=== PATIENT | male | born 1950 | race Caucasian/White ===

== ENCOUNTER 2022-07-05 02:21 | Emergency (ER) | payer MEDICARE ==
[2022-07-05 03:10] LABS: Bilirubin Negative (Negative); Blood, Urine Large (Negative); Clarity Cloudy (Clear); Glucose, Urine (Dipstick) Negative (Negative); Ketone, Urine Negative (Negative); Leukocyte Trace (Negative); Nitrite Negative (Negative); Protein, Urine (Dipstick) 100 mg/dL (Neg-Trace); Urobilinogen 0.2 mg/dL (Less than 2)
[2022-07-05 03:16] LABS: RBC/HPF Greater than 50 HPF (0-3); Squamous Epithelial None Seen HPF (0-3); WBC/HPF 0-3 HPF (0-3)
[2022-07-05 03:17] LABS: Bacteria/HPF None Seen HPF (None Seen)
== END 2022-07-05 03:25 | disposition home or self-care (01) ==
LOC: NAV ERS 02:21
DX: T83.091A Other mechanical complication of indwelling urethral catheter, initial encounter (principal); E78.00 Pure hypercholesterolemia, unspecified; I10 Essential (primary) hypertension; E10.9 Type 1 diabetes mellitus without complications; Z87.891 Personal history of nicotine dependence
CPT/HCPCS: 51702; 51798; 81003; 81015; 87086

== ENCOUNTER 2022-07-06 12:03 | Emergency (ER) | payer MEDICARE | END 2022-07-06 14:07 | disposition home or self-care (01) | LOC: NAV ERS 12:03 | DX: T83.091A Other mechanical complication of indwelling urethral catheter, initial encounter (principal); N32.89 Other specified disorders of bladder; E10.9 Type 1 diabetes mellitus without complications; E78.00 Pure hypercholesterolemia, unspecified; I10 Essential (primary) hypertension; Z87.891 Personal history of nicotine dependence | CPT/HCPCS: 99283 ==

== ENCOUNTER 2025-05-16 15:54 | Inpatient (IN) | payer MEDICARE ==
[2025-05-16] MEDS ORDERED: Acetaminophen 325 MG TAB PO PRN (17:51)
[2025-05-16] MEDS ORDERED: Senokot S 8.6-50 MG TAB PO PRN (17:51)
[2025-05-16] MEDS ORDERED: Glucagon 1 MG/ML KIT IM PRN (17:57)
[2025-05-16] MEDS ORDERED: Dextrose 50% Abboject 50 ML SYRINGE SLOW IVP PRN (17:57)
[2025-05-16] MEDS ORDERED: IMIQUIMOD TOP SCH (18:00)
[2025-05-16] MEDS: Tacrolimus 0.5 MG CAP PO SCH (20:24)
[2025-05-16] MEDS: Famotidine 20 MG TAB PO SCH (20:24)
[2025-05-16] MEDS: [UNRECOGNIZED DRUG - OTHER] TOP SCH (20:29)
[2025-05-16] MEDS: Heparin 5,000 UNITS/ML VIAL SC SCH (20:37)
[2025-05-16] MEDS: Lantus 1000 UNITS/10 ML VIAL SC SCH (22:09)
[2025-05-17 05:57] LABS: #Basophils 0.1 thou/uL (0.0-0.2); #Eosinophils 0.1 thou/uL (0.0-0.7); #Lymphocytes 0.7 thou/uL (1.20-3.40); #Monocytes 0.5 thou/uL (0.11-0.59); #Neutrophils 6.4 thou/uL (1.40-6.50); %Basophils 1.7 % (0.0-1.0); %Eosinophils 1.6 % (0.0-10.0); %Lymphocytes 8.4 % (21.0-51.0); %Monocytes 6.7 % (0.0-10.0); %Neutrophils 81.6 % (42.0-75.0); Hematocrit 30.6 % (42.0-52.0); Hemoglobin 9.6 g/dL (14.0-18.0); Mean Corpuscular Hemoglobin 29.7 pg (27.0-31.0); Mean Corpuscular Volume 94.8 fl (78.0-98.0); Platelet Count 237 10x3/uL (130-400); Red Blood Cell (RBC) Count 3.23 mill/uL (4.70-6.10); White Blood Cell (WBC) Count 7.9 10x3/uL (4.8-10.8)
[2025-05-17 06:12] LABS: ALT (SGPT) 24 U/L (Less than 45); AST (SGOT) 29 U/L (11-34); Albumin 2.6 g/dL (3.1-4.5); Alkaline Phosphatase 118 U/L (40-110); Anion Gap 14 mmol/L (10-20); BUN (Urea Nitrogen) 14 mg/dL (8.4-25.7); Bilirubin, Total 0.4 mg/dL (0.3-1.2); Calc. Creatinine Clearance 93 mL/min (70-130); Calcium 9.1 mg/dL (7.8-10.44); Carbon Dioxide 23 mmol/L (23-31); Chloride 105 mmol/L (98-107); Globulin 3.6 g/dL (2.4-3.5); Glucose 304 mg/dL (83-110); Potassium 4.4 mmol/L (3.5-5.1); Sodium 138 mmol/L (136-145)
[2025-05-17] MEDS: Aspirin 81 mg Enteric Coated Tablet PO SCH (08:14)
[2025-05-17] MEDS: Cholecalciferol (Vitamin D3) 400 UNITS TAB PO SCH (08:15)
[2025-05-17] MEDS: Metoprolol Succinate XL 50 MG ER.TAB PO SCH (08:15)
[2025-05-17] MEDS: Lantus 1000 UNITS/10 ML VIAL SC SCH ×2 (08:15→20:27)
[2025-05-17] MEDS: Sertraline 100 MG TAB PO SCH (08:16)
[2025-05-17] MEDS: Multivit, Therapeutic 1 TAB PO SCH (08:16)
[2025-05-17] MEDS: Tacrolimus 0.5 MG CAP PO SCH (08:17)
[2025-05-17] MEDS ORDERED: Furosemide 40 MG TAB PO SCH (09:00)
[2025-05-18] MEDS: Lantus 1000 UNITS/10 ML VIAL SC SCH (08:38)
[2025-05-18] MEDS: PNEUMOC 20-VAL CONJ-DIP CRM/PF 0.5 ML SYRINGE IM ONE (09:42)
[2025-05-18] MEDS ORDERED: HumaLOG 300 UNITS/3 ML VIAL SC PRN (21:00)
[2025-05-20] MEDS: IMIQUIMOD TOP SCH (18:26)
[2025-05-21 06:01] LABS: #Basophils 0.1 thou/uL (0.0-0.2); #Eosinophils 0.2 thou/uL (0.0-0.7); #Lymphocytes 0.8 thou/uL (1.20-3.40); #Monocytes 0.5 thou/uL (0.11-0.59); #Neutrophils 5.7 thou/uL (1.40-6.50); %Basophils 1.4 % (0.0-1.0); %Eosinophils 2.6 % (0.0-10.0); %Lymphocytes 10.4 % (21.0-51.0); %Monocytes 7.0 % (0.0-10.0); %Neutrophils 78.7 % (42.0-75.0); Hematocrit 31.3 % (42.0-52.0); Hemoglobin 9.9 g/dL (14.0-18.0); Mean Corpuscular Hemoglobin 29.9 pg (27.0-31.0); Mean Corpuscular Volume 95.1 fl (78.0-98.0); Platelet Count 234 10x3/uL (130-400); Red Blood Cell (RBC) Count 3.30 mill/uL (4.70-6.10); White Blood Cell (WBC) Count 7.2 10x3/uL (4.8-10.8)
[2025-05-21 06:03] LABS: Anion Gap 14 mmol/L (10-20); BUN (Urea Nitrogen) 16 mg/dL (8.4-25.7); Calc. Creatinine Clearance 80 mL/min (70-130); Calcium 9.5 mg/dL (7.8-10.44); Carbon Dioxide 25 mmol/L (23-31); Chloride 108 mmol/L (98-107); Glucose 92 mg/dL (83-110); Potassium 4.5 mmol/L (3.5-5.1); Sodium 142 mmol/L (136-145)
[2025-05-21] MEDS: Losartan 25 MG TAB PO SCH (09:23)
[2025-05-21] MEDS: Lantus 1000 UNITS/10 ML VIAL SC SCH (09:28)
[2025-05-21] MEDS: PNEUMOC 20-VAL CONJ-DIP CRM/PF 0.5 ML SYRINGE IM ONE (15:42)
[2025-05-24] MEDS: Lantus 1000 UNITS/10 ML VIAL SC SCH (09:15)
[2025-05-25] MEDS: Losartan 25 MG TAB PO SCH (09:53)
[2025-05-26] MEDS: Melatonin 3 MG TAB PO SCH (20:37)
[2025-05-27 05:41] LABS: #Basophils 0.1 thou/uL (0.0-0.2); #Eosinophils 0.2 thou/uL (0.0-0.7); #Lymphocytes 0.8 thou/uL (1.20-3.40); #Monocytes 0.4 thou/uL (0.11-0.59); #Neutrophils 3.6 thou/uL (1.40-6.50); %Basophils 1.6 % (0.0-1.0); %Eosinophils 4.7 % (0.0-10.0); %Lymphocytes 15.7 % (21.0-51.0); %Monocytes 7.0 % (0.0-10.0); %Neutrophils 71.0 % (42.0-75.0); Hematocrit 31.3 % (42.0-52.0); Hemoglobin 10.2 g/dL (14.0-18.0); Mean Corpuscular Hemoglobin 30.9 pg (27.0-31.0); Mean Corpuscular Volume 95.0 fl (78.0-98.0); Platelet Count 224 10x3/uL (130-400); Red Blood Cell (RBC) Count 3.29 mill/uL (4.70-6.10); White Blood Cell (WBC) Count 5.1 10x3/uL (4.8-10.8)
[2025-05-27 05:55] LABS: ALT (SGPT) 34 U/L (Less than 45); AST (SGOT) 35 U/L (11-34); Albumin 2.9 g/dL (3.1-4.5); Alkaline Phosphatase 89 U/L (40-110); Anion Gap 14 mmol/L (10-20); BUN (Urea Nitrogen) 18 mg/dL (8.4-25.7); Bilirubin, Total 0.3 mg/dL (0.3-1.2); Calc. Creatinine Clearance 85 mL/min (70-130); Calcium 8.9 mg/dL (7.8-10.44); Carbon Dioxide 23 mmol/L (23-31); Chloride 109 mmol/L (98-107); Globulin 3.3 g/dL (2.4-3.5); Glucose 110 mg/dL (83-110); Potassium 4.5 mmol/L (3.5-5.1); Sodium 141 mmol/L (136-145)
[2025-05-28] MEDS: Lidocaine 4% Topical Sol 50 ML BOT TOP SCH (08:14)
[2025-05-29 03:42] VITALS: BMI 24.3
[2025-05-30 12:21] VITALS: BMI 24.3
[2025-05-31 07:55] VITALS: BP 178/81; TEMP 97.6
== END 2025-05-31 13:50 | disposition home or self-care (01) | DRG 945 ==
LOC: NAV ACUTE 16:39
PROVIDERS: ADMIT Family Medicine; ATTEND Family Medicine
PROC: F07Z9ZZ Gait Training/Functional Ambulation Treatment (ICD-10-PCS; principal; 2025-05-16)
DX: R53.1 Weakness (principal); I13.0 Hypertensive heart and chronic kidney disease with heart failure and stage 1 through stage 4 chronic kidney disease, or unspecified chronic kidney disease; I50.32 Chronic diastolic (congestive) heart failure; Z94.0 Kidney transplant status; N17.9 Acute kidney failure, unspecified; I25.10 Atherosclerotic heart disease of native coronary artery without angina pectoris; E10.22 Type 1 diabetes mellitus with diabetic chronic kidney disease; K21.9 Gastro-esophageal reflux disease without esophagitis; N18.2 Chronic kidney disease, stage 2 (mild); F32.9 Major depressive disorder, single episode, unspecified; H54.7 Unspecified visual loss; E78.5 Hyperlipidemia, unspecified; G47.33 Obstructive sleep apnea (adult) (pediatric); I48.0 Paroxysmal atrial fibrillation; Z90.49 Acquired absence of other specified parts of digestive tract; Z95.1 Presence of aortocoronary bypass graft; Z92.21 Personal history of antineoplastic chemotherapy; Z98.890 Other specified postprocedural states; Z98.61 Coronary angioplasty status; Z82.49 Family history of ischemic heart disease and other diseases of the circulatory system; Z79.82 Long term (current) use of aspirin; Z79.899 Other long term (current) drug therapy; Z79.4 Long term (current) use of insulin
CPT/HCPCS: 36415; 36416; 80048; 80053; 85025; 90471; 90677; 97602; G0009; J1644; J1815; J7507; J7517

== ENCOUNTER 2025-07-11 11:05 | Emergency (ER) | payer MEDICARE ==
[2025-07-11 11:52] LABS: #Basophils 0.0 thou/uL (0.0-0.2); #Eosinophils 0.1 thou/uL (0.0-0.7); #Lymphocytes 0.3 thou/uL (1.20-3.40); #Monocytes 0.5 thou/uL (0.11-0.59); #Neutrophils 9.4 thou/uL (1.40-6.50); %Basophils 0.3 % (0.0-1.0); %Eosinophils 0.5 % (0.0-10.0); %Lymphocytes 2.6 % (21.0-51.0); %Monocytes 5.3 % (0.0-10.0); %Neutrophils 91.3 % (42.0-75.0); Hematocrit 29.4 % (42.0-52.0); Hemoglobin 9.6 g/dL (14.0-18.0); Mean Corpuscular Hemoglobin 31.3 pg (27.0-31.0); Mean Corpuscular Volume 96.3 fl (78.0-98.0); Platelet Count 219 10x3/uL (130-400); Red Blood Cell (RBC) Count 3.05 mill/uL (4.70-6.10); White Blood Cell (WBC) Count 10.3 10x3/uL (4.8-10.8)
[2025-07-11 12:04] LABS: Glucose, Urine (Dipstick) Negative (Negative); Leukocyte Moderate (Negative); Protein, Urine (Dipstick) 100 mg/dL (Neg-Trace); Specific Gravity, Urine 1.010 (1.005-1.030)
[2025-07-11 12:09] LABS: ALT (SGPT) 43 U/L (Less than 45); AST (SGOT) 45 U/L (11-34); Albumin 2.6 g/dL (3.1-4.5); Alkaline Phosphatase 142 U/L (40-110); Anion Gap 19 mmol/L (10-20); BUN (Urea Nitrogen) 43 mg/dL (8.4-25.7); Bilirubin, Total 0.5 mg/dL (0.3-1.2); Calc. Creatinine Clearance 0 mL/min (70-130); Calcium 8.7 mg/dL (7.8-10.44); Carbon Dioxide 23 mmol/L (23-31); Chloride 96 mmol/L (98-107); Globulin 4.3 g/dL (2.4-3.5); Potassium 5.3 mmol/L (3.5-5.1); Sodium 133 mmol/L (136-145)
[2025-07-11 12:10] LABS: Troponin I 0.021 ng/mL (< 0.028)
[2025-07-11 12:25] LABS: Bacteria/HPF 4+ HPF (None Seen); CAUTI Indications for Culture Alt mental st,lethar; WBC/HPF Greater Than 50 HPF (0-3)
[2025-07-11 12:26] LABS: Urine Culture Reflex Yes Yes
[2025-07-11 12:34] LABS: Glucose 565 mg/dL (83-110)
[2025-07-11] MEDS ORDERED: cefTRIAXone (ROCEPHIN) 2 GM VIAL ONE (13:54)
== END 2025-07-11 17:53 | disposition short-term general hospital (02) ==
LOC: NAV ERS 11:05
DX: N17.9 Acute kidney failure, unspecified (principal); N30.00 Acute cystitis without hematuria; D64.9 Anemia, unspecified; E87.5 Hyperkalemia; I10 Essential (primary) hypertension; E10.319 Type 1 diabetes mellitus with unspecified diabetic retinopathy without macular edema; E78.00 Pure hypercholesterolemia, unspecified; Z87.891 Personal history of nicotine dependence; Z95.5 Presence of coronary angioplasty implant and graft; Z79.4 Long term (current) use of insulin; Z79.899 Other long term (current) drug therapy; Z79.51 Long term (current) use of inhaled steroids; Z79.82 Long term (current) use of aspirin; Z95.1 Presence of aortocoronary bypass graft
CPT/HCPCS: 36416; 71045; 80053; 81001; 84484; 85025; 87077; 87086; 87186; 93005; 96365; 96375; J0696; J1815; J7030